=== PATIENT | male | born 1980 | race African-American/Black ===

== ENCOUNTER 2020-12-20 18:31 | Emergency (ER) | payer MEDICAID ==
[~2020-12-20] VITALS: Ht 152.4 cm; Wt 64.0 kg
[2020-12-20 18:48] VITALS: BP 130/84
[2020-12-20] MEDS ORDERED: HYDROCODONE/ACETAMINOPHEN 5/325MG TABLET PO ONE (19:15)
[2020-12-20] MEDS ORDERED: IBUPROFEN 400MG TABLET PO ONE (19:15)
[2020-12-20] MEDS ORDERED: HYDR-4001 MT ×2 (20:45)
[2020-12-20] MEDS ORDERED: IBUP-2028 MT ×2 (20:45→20:46)
== END 2020-12-20 21:20 | disposition home or self-care (01) ==
LOC: ER 18:31
DX: S92.352A Displaced fracture of fifth metatarsal bone, left foot, initial encounter for closed fracture (principal); V29.9XXA Motorcycle rider (driver) (passenger) injured in unspecified traffic accident, initial encounter; Y93.89 Activity, other specified; Y92.89 Other specified places as the place of occurrence of the external cause; Y99.8 Other external cause status
CPT/HCPCS: 29515; 73562; 73590; 73610; 73630; 99284

== ENCOUNTER 2021-10-27 05:12 | Emergency (ER) | payer MEDICAID, OTHER ==
[~2021-10-27] VITALS: Ht 152.4 cm; Wt 71.5 kg
[~2021-10-27 05:12] MED LIST: HYDR-4001 MT; IBUP-2028 MT
[2021-10-27 05:21] VITALS: BP 155/74
[2021-10-27] MEDS ORDERED: KETOROLAC 60MG/2ML VIAL IM ONE (07:15)
[2021-10-27] MEDS ORDERED: OXYCODONE HCL/ACETAMINOPHEN 5/325MG TABLET PO ONE (07:15)
[2021-10-27] MEDS ORDERED: T3 PO ×2 (08:52→09:06)
[2021-10-27] MEDS ORDERED: IBUP-2028 PO (08:52)
== END 2021-10-27 09:28 | disposition home or self-care (01) ==
LOC: ER 05:12
DX: M54.50 Low back pain, unspecified (principal); F12.10 Cannabis abuse, uncomplicated; Z79.899 Other long term (current) drug therapy; Z98.890 Other specified postprocedural states
CPT/HCPCS: 96372; 99283; J1885

== ENCOUNTER 2021-12-25 22:25 | Emergency (ER) | payer OTHER ==
[~2021-12-25] VITALS: Ht 152.4 cm; Wt 68.0 kg
[~2021-12-25 22:25] MED LIST changes: +IBUP-2028 PO; +T3 PO
[2021-12-25] MEDS ORDERED: MORPHINE SULFATE 4 MG/ML CPJ (NOT FOR IM USE) IV NR (23:00)
[2021-12-25 23:25] LABS: BASOPHILS % 1.9 % (0.0-2.0); EOSINOPHILS % 2.1 % (0.0-5.0); HEMOGLOBIN. 11.7 g/dL (14.0-18.0); LYMPHOCYTES % 48.8 % (20.0-50.0); MEAN CORPUSCULAR HEMOGLOBIN 23.3 pg (28.0-32.0); MEAN CORPUSCULAR VOLUME 71.6 fL (80.0-94.0); MEAN PLATELET VOLUME 8.1 fl (7.4-10.4); MONOCYTES % 12.8 % (2.0-8.0); NEUTROPHILS % 34.4 % (40.0-76.0); PLATELET 317 x1000/uL (130-400); RED BLOOD CELL COUNT 5.03 mill/uL (4.7-6.1); RED CELL DISTRIBUTION WIDTH 15.6 % (11.6-14.6)
[2021-12-25 23:37] LABS: CHLORIDE 110 mEq/L (98-107)
[2021-12-26] MEDS ORDERED: IOHEXOL-300 100 ML BOTTLE ONE (00:25)
[2021-12-26] MEDS ORDERED: MORPHINE SULFATE 4 MG/ML CPJ (NOT FOR IM USE) IV ONE (01:30)
[2021-12-26] MEDS ORDERED: KETOROLAC 30MG/ML VIAL IV NR (01:45)
[2021-12-26] MEDS ORDERED: METOPROLOL TARTRATE 5MG/5ML VIAL IV NR (01:45)
[2021-12-26 01:54] LABS: CLARITY URINE CLEAR (CLEAR); COLOR URINE YELLOW (YELLOW); KETONES URINE NEGATIVE (NEGATIVE); LEUKOCYTE ESTERASE URINE NEGATIVE (NEGATIVE); NITRITE URINE NEGATIVE (NEGATIVE); OCCULT BLOOD URINE NEGATIVE (NEGATIVE); PROTEIN URINE NEGATIVE (NEGATIVE); SPECIFIC GRAVITY URINE 1.036 (1.005-1.030)
[2021-12-26 02:28] LABS: *AMPHETAMINES SCREEN URINE NEGATIVE (NEGATIVE); *BARBITURATES SCREEN URINE NEGATIVE (NEGATIVE); *BENZODIAZEPINES SCREEN URINE NEGATIVE (NEGATIVE); *COCAINE SCREEN URINE NEGATIVE (NEGATIVE); CANNABINOID URINE SCREEN NEGATIVE (NEGATIVE); METHADONE URINE SCREEN NEGATIVE (NEGATIVE); OPIATES URINE SCREEN PRESUMTIVE POSITIVE (NEGATIVE); PHENCYCLIDINE URINE SCREEN NEGATIVE (NEGATIVE)
[2021-12-26 04:00] VITALS: BP 132/75
[2021-12-26] MEDS ORDERED: PROPRANOLOL HCL 1MG/ML AMPULE IV NR (04:00)
== END 2021-12-26 04:20 | disposition left against medical advice (07) ==
LOC: ER 22:25 → UNDOADMIN 12-26 18:36 → MICUSO 12-26 18:36 → ENRESERV 12-26 19:13 → UNDODISIN 12-26 20:37
DX: M25.512 Pain in left shoulder (principal); R00.0 Tachycardia, unspecified; M54.50 Low back pain, unspecified; F12.10 Cannabis abuse, uncomplicated
CPT/HCPCS: 36415; 70450; 71045; 72125; 72128; 72131; 73030; 74177; 80053; 80305; 81003; 83690; 84443; 85025; 86850; 86900; 86901; 96374; 99291; J1800; J1885; J2270; Q9967

== ENCOUNTER 2021-12-26 13:54 | Emergency (ER) | payer OTHER ==
[~2021-12-26] VITALS: Ht 152.4 cm; Wt 66.0 kg
[2021-12-26 16:45] LABS: BASOPHILS % 1.2 % (0.0-2.0); EOSINOPHILS % 2.2 % (0.0-5.0); HEMOGLOBIN. 12.5 g/dL (14.0-18.0); LYMPHOCYTES % 46.3 % (20.0-50.0); MEAN PLATELET VOLUME 8.1 fl (7.4-10.4); NEUTROPHILS % 39.3 % (40.0-76.0); PLATELET 337 x1000/uL (130-400); RED BLOOD CELL COUNT 5.42 mill/uL (4.7-6.1); RED CELL DISTRIBUTION WIDTH 15.3 % (11.6-14.6)
[2021-12-26] MEDS ORDERED: PROPYLTHIOURACIL 50MG TABLET PO SCH (16:45)
[2021-12-26] MEDS ORDERED: PROPRANOLOL HCL 1MG/ML AMPULE IV ONE (16:45)
[2021-12-26 16:51] LABS: CHLORIDE 105 mEq/L (98-107)
[2021-12-26] MEDS ORDERED: PROPRANOLOL HCL 1MG/ML AMPULE IV NR (17:00)
[2021-12-26] MEDS ORDERED: DEXAMETHASONE 10 MG/ML VIAL IV ONE (17:30)
[2021-12-26] MEDS ORDERED: DEXAMETHASONE 4MG/ML 1ML VIAL IV NR (18:00)
[2021-12-26] MEDS ORDERED: POTASSIUM IODIDE/IODINE 14 ML BOTTLE PO SCH (18:00)
[2021-12-26 19:00] LABS: T4 FREE > 8.00 ng/dL (0.76-1.46)
[2021-12-26 19:13] LABS: CLARITY URINE CLEAR (CLEAR); COLOR URINE YELLOW (YELLOW); KETONES URINE 1+ (NEGATIVE); LEUKOCYTE ESTERASE URINE NEGATIVE (NEGATIVE); NITRITE URINE NEGATIVE (NEGATIVE); OCCULT BLOOD URINE NEGATIVE (NEGATIVE); PH URINE 5.5 (4.5-8.0); PROTEIN URINE NEGATIVE (NEGATIVE); SPECIFIC GRAVITY URINE 1.021 (1.005-1.030); UROBILINOGEN URINE 0.2 E.U./dL (0.2-1.0)
[2021-12-26 20:14] VITALS: BP 123/65
== END 2021-12-26 20:44 | disposition left against medical advice (07) ==
LOC: ER 13:54 → EDBEDREQ 18:16 → EDBEDREQTM 18:16 → ER 20:44 → CANBEDREQ 12-27 07:18
DX: E05.91 Thyrotoxicosis, unspecified with thyrotoxic crisis or storm (principal); F12.10 Cannabis abuse, uncomplicated; Z98.890 Other specified postprocedural states
CPT/HCPCS: 36415; 71045; 80053; 81003; 83880; 84439; 84443; 84480; 84484; 85025; 93005; 96374; 96375; 99291; J1100; J1800

== ENCOUNTER 2023-03-30 00:24 | Emergency (ER) | payer OTHER ==
[~2023-03-30] VITALS: Ht 152.4 cm; Wt 68.9 kg
[2023-03-30 00:50] VITALS: BP 138/70; PULSE 64; RESP 16; TEMP 98.2; O2SAT 100
[2023-03-30] MEDS ORDERED: HYDROCODONE/ACETAMINOPHEN 5/325MG TABLET PO ONE (02:15)
[2023-03-30] MEDS ORDERED: IBUP-2030 MT (02:26)
== END 2023-03-30 03:36 | disposition home or self-care (01) ==
LOC: ER 00:24
DX: S99.921A Unspecified injury of right foot, initial encounter (principal); X58.XXXA Exposure to other specified factors, initial encounter; Y93.89 Activity, other specified; Y92.89 Other specified places as the place of occurrence of the external cause; Y99.8 Other external cause status
CPT/HCPCS: 29515; 73630; 99283

== ENCOUNTER 2023-10-14 00:41 | Emergency (ER) | payer OTHER ==
[~2023-10-14] VITALS: Ht 152.4 cm; Wt 63.0 kg
[~2023-10-14 00:41] MED LIST changes: +IBUP-2030 MT
[2023-10-14 00:48] VITALS: TEMP 98.1; O2SAT 99
[2023-10-14] MEDS ORDERED: KETOROLAC 15MG/ML VIAL IM ONE (02:15)
[2023-10-14] MEDS: KETOROLAC 15MG/ML VIAL IM NR (04:39)
[2023-10-14] MEDS ORDERED: LIDO700A15 TP (04:40)
[2023-10-14] MEDS ORDERED: NAPR-1176 MT (04:40)
[2023-10-14 05:05] VITALS: BP 131/73; PULSE 91; RESP 18
== END 2023-10-14 05:06 | disposition home or self-care (01) ==
LOC: ER 01:03
DX: R52 Pain, unspecified (principal); F12.90 Cannabis use, unspecified, uncomplicated; V98.8XXA Other specified transport accidents, initial encounter; Y93.89 Activity, other specified; Y92.89 Other specified places as the place of occurrence of the external cause; Y99.8 Other external cause status
CPT/HCPCS: 96372; 99283; J1885; Z7610